=== PATIENT | female | born 1975 | race Caucasian/White ===

== ENCOUNTER 2019-10-11 14:08 | Emergency (ER) | payer MEDICAID, OTHER ==
[~2019-10-11] VITALS: Ht 154.9 cm; Wt 62.6 kg
--- NOTE | 2019-10-11 14:20 | NUR ---
patient seen and examine by
[2019-10-11] MEDS ORDERED: IBUPROFEN 800 MG TABLET PO ONE (14:30)
[2019-10-11] MEDS ORDERED: NEOMY/BACITRA/POLYMYXIN B OINT UD PACKET TP ONE ×2 (14:30→14:36)
[2019-10-11] MEDS ORDERED: IBUPROFEN 800 MG TABLET ONE (14:37)
--- NOTE | 2019-10-11 14:47 | NUR ---
dcd education and prescription given to pt. who verbalized understanding. Left room AAOX4. abrasion to left fore arm cleaned and treated as ordered.
== END 2019-10-11 14:53 | disposition home or self-care (01) ==
LOC: ER 14:10
DX: S50.812A Abrasion of left forearm, initial encounter (principal); S80.12XA Contusion of left lower leg, initial encounter; S80.11XA Contusion of right lower leg, initial encounter; S00.532A Contusion of oral cavity, initial encounter; V49.9XXA Car occupant (driver) (passenger) injured in unspecified traffic accident, initial encounter; Y92.414 Local residential or business street as the place of occurrence of the external cause; R03.0 Elevated blood-pressure reading, without diagnosis of hypertension
CPT/HCPCS: A4663